=== PATIENT | male | born 1960 | race Caucasian/White ===

== ENCOUNTER 2022-04-08 17:06 | Emergency (ER) | payer OTHER, SELFPAY ==
[2022-04-08 17:15] VITALS: BP 120/71; PULSE 70; RESP 18; TEMP 36.8; O2SAT 100
--- NOTE | 2022-04-08 17:24 | ED.EYEPROB ---
HPI - Eye Problem General Chief complaint: Eye Problems Stated complaint: Eyes Irritation Time Seen by Provider: 04/08/22 17:24 Source: patient Mode of arrival: ambulatory Limitations: no limitations History of Present Illness HPI Narrative: 61-year-old male presents with complaint of irritation, clear drainage from both eyes. Symptoms worse to left eye. Has had the symptoms for 2-3 days. States that they started after cleaning out gutters. States some leaves flew into his eyes and he itched at them. Is concerned he is now getting infection. all systems reviewed and negative except as noted above. Related Data Allergies Allergy/AdvReac Type Severity Reaction Status Date / Time No Known Allergies Allergy Verified 04/08/22 17:14 Review of Systems Review of Systems: CONSTITUTIONAL: Denies fever, chills, or sweats. EYES: Denies visual changes . Reports redness, and clear discharge both eyes. ENT: Denies rhinorrhea, congestion, sore throat, or otalgia. CARDIOVASCULAR: Denies chest pain, palpitations, or edema. RESPIRATORY: Denies cough or dyspnea. GASTROINTESTINAL: Denies abdominal pain, nausea, vomiting, or diarrhea. GENITOURINARY: Denies dysuria or hematuria. SKIN: Denies rash or itching. MUSCULOSKELETAL: Denies back pain, joint pain, or myalgia. NEUROLOGIC: Denies headache, numbness, or weakness. PSYCHIATRIC: Denies anxiety or depression. All other systems reviewed are negative, except as documented in HPI. PMFSH Comments At time of signature, agree with nursing past medical, surgical, social and family history. There is no relevant family history pertinent to the presenting complaint. Exam Narrative: GENERAL: This is a well-nourished, well-developed patient, in no apparent distress. HEAD: normocephalic, atraumatic. EYES: PERRL. Sclera clear/white. Vision is grossly intact. corneal abrasion to left eye noted 9 o'clock and corneal abrasion to right eye noted at 5 O'clock. EARS: External ears normal NOSE: External nose normal NECK: Neck supple, non-tender without lymphadenopathy, masses or thyromegaly. CARDIOVASCULAR: Regular rate and rhythm without murmurs, gallops, or rubs. RESPIRATORY: Clear to auscultation. Breath sounds equal bilaterally. No wheezes, rales, or rhonchi. SKIN: warm, Dry, intact with no suspicious lesions or rash, good texture and turgor. NEURO: awake, alert, and oriented to person, place and time. There were no obvious focal neurologic abnormalities. EXTREMITIES: No joint tenderness, effusion, or edema noted. Course Course Level of Care: Express Care Visit Vital Signs Vital signs: Vital Signs Temperature 36.8 C 04/08/22 17:15 Pulse Rate 70 04/08/22 17:15 Respiratory Rate 18 04/08/22 17:15 Blood Pressure 120/71 04/08/22 17:15 Pulse Oximetry 100 04/08/22 17:15 Oxygen Delivery Room Air 04/08/22 17:15 Temperature 36.8 C 04/08/22 17:15 Pulse Rate 70 04/08/22 17:15 Respiratory Rate 18 04/08/22 17:15 Blood Pressure 120/71 04/08/22 17:15 Pulse Oximetry 100 04/08/22 17:15 Oxygen Delivery Room Air 04/08/22 17:15 reviewed Procedures Other Procedure Procedure 1: Other Procedure: Topical anesthetic was instilled with good anesthesia using 1gtt of opth anesthetic agent (tetracaine). Fluorescein stain of the R/L eye was performed. corneal abrasion noted to left and right eye. MDM - Eye Problem MDM Narrative Medical decision making narrative: Patient is aware of diagnosis, understands and agrees to treatment plan. Anticipatory guidance given. Patient agrees to follow-up as directed and is aware of reasons to seek care at the emergency department. Portions of this record may have been created with voice recognition software Discharge Plan Discharge Clinical Impression: Corneal abrasion of both eyes Patient Disposition: Home, Self-Care Condition: Stable Instructions: Antibiotic Form, Corneal Abrasion (ED) Presc
== END 2022-04-08 17:40 | disposition home or self-care (01) ==
PROVIDERS: Emergency Provider Nurse Practitioner Family
DX: S05.02XA Injury of conjunctiva and corneal abrasion without foreign body, left eye, initial encounter (principal); S05.01XA Injury of conjunctiva and corneal abrasion without foreign body, right eye, initial encounter; X58.XXXA Exposure to other specified factors, initial encounter
CPT/HCPCS: 99213; A9270; G0463

== ENCOUNTER 2022-06-25 17:56 | Emergency (ER) | payer OTHER, SELFPAY ==
--- NOTE | ~2022-06-25 | CT_ITS ---
EXAMINATION: CT abdomen pelvis w con DATE: 06/25/2022 21:36 INDICATION: LLQ pain, left flank pain, kidney stone, diverticu TECHNIQUE: Computed tomography (CT) of the abdomen and pelvis was performed with 100 mL Omnipaque-350 intravenous contrast. Automated exposure control and iterative reconstruction technique were employe d. The dose-length product was 480.90 mGy-cm. COMPARISON: None. FINDINGS: Lower thorax: Small fat-containing uncomplicated right posterior diaphragmatic hernia. Liver: Multiple simple hepatic cysts. Biliary/Gallbladder: Gallbladder is normal. No bile duct dilation. Pancreas: No mass or duct dilation. Spleen: Normal. Adrenals:No mass. Kidneys: Punctate left lower pole calcification. No mass, obstructing stone, or hydronephrosis. GI tract: Mild distal esophageal and gastric wall edema. No small or large bowel dilation. Normal klarissa endix. Mesentery/Peritoneum: No ascites, mass, or free air. Retroperitoneum: No mass. Pelvis: Bladder wall thickening. Marked prostatomegaly. Soft Tissues: Small uncomplicated fat-containing umbilical and bilateral inguinal hernias. Bones: No acute osseous finding. IMPRESSION: Esophagitis/gastritis. Bladder wall thickening may be secondary to outlet compromise or cystitis. No additional acute abdominopelvic process detected. Specifically, there is no CT evidence of diverti culitis or obstructive uropathy. Reviewed, dictated and finalized at location [facility]. IMPRESSION: Esophagitis/gastritis. Bladder wall thickening may be secondary to outlet compr omise or cystitis. No additional acute abdominopelvic process detected. Specifically, there is no CT evidence of diverticulitis or obstructive uropathy.
[2022-06-25 17:57] VITALS: BP 121/71; PULSE 70; RESP 15; TEMP 36.7; O2SAT 100
[2022-06-25 20:23] LABS: Basophils Absolute Auto 0.1 K/mm3 (0.0-0.1); Basophils Percent Auto 0.8 % (0.2-1.2); Eosinophils Absolute Auto 0.1 K/mm3 (0-0.3); Eosinophils Percent Auto 1.5 % (0-4.4); Hematocrit 43.5 % (42.0-52.0); Hemoglobin 14.4 g/dL (14.0-18.0); Immature Granulocyte Absolute 0.01 K/mm3 (0.00-0.031); Immature Granulocyte Percent A 0.1 % (0-0.5); Lymphocytes Absolute Auto 2.77 K/mm3 (0.9-3.2); Lymphocytes Percent Auto 38.5 % (18.3-44.2); Mean Corpuscular HGB Conc 33.1 g/dl (32-36); Mean Corpuscular Hemoglobin 29.4 pg (26-34); Mean Platelet Volume 10.5 fl (7.4-10.4); Monocytes Absolute Auto 0.6 K/mm3 (0.1-0.6); Monocytes Percent Auto 7.8 % (2.6-8.5); Neutrophils Absolute Auto 3.7 K/mm3 (1.3-6.7); Neutrophils Percent Auto 51.3 % (45.5-73.1); Platelet Count Result 335 k/mm3 (150-375); Red Blood Count 4.89 M/mm3 (4.6-6.20); Red Cell Distribution Width 12.9 % (11.5-14.5); White Blood Count 7.2 K/mm3 (4.5-10.0)
[2022-06-25 20:29] LABS: Appearance Urine Clear (Clear); Bilirubin Urine Negative (Negative); Blood Urine Negative (Negative); Color Urine Yellow (Yellow); Glucose Urine UA Negative (Negative); Ketones Urine Negative (Negative); Leukocyte Esterase Ur Negative LEU/UL (Negative); Nitrate Urine Negative (Negative); Protein Urine Negative (Negative); Specific Grav Ur 1.008 (1.001-1.035); Urobilinogen Urine 0.2 mg/dL (<2.0)
[2022-06-25 20:39] LABS: Add Urine Microscopic? NO
[2022-06-25 21:12] LABS: Alanine Aminotransferase 21 U/L (6-50); Albumin Level 4.6 g/dL (3.5-5.1); Alkaline Phosphatase 79 U/L (38-126); Anion Gap 7 mmol/L (8-16); Aspartate Amino Transferase 20 U/L (17-59); Bilirubin,Total 0.5 mg/dL (0.2-1.3); Blood Urea Nitrogen 9 mg/dL (9-20); Calcium 9.1 mg/dL (8.4-10.2); Carbon Dioxide 24 mmol/L (22-30); Chloride 107 mmol/L (98-107); Estimated CRCL calculation 119 ml/min; Estimated Glomerular Filt Rate > 60; Glucose 100 mg/dL (65-110); Lipase 78 U/L (23-300); Potassium 4.1 mmol/L (3.4-5.0); Sodium 138 mmol/L (137-145)
--- NOTE | 2022-06-25 21:24 | ED.BACK ---
HPI - Back Pain/Injury General Chief Complaint: Back Pain/Injury Stated Complaint: Left back pain Time Seen by Provider: 06/25/22 19:31 Source: patient and family Mode of arrival: ambulatory Limitations: no limitations History of Present Illness HPI Narrative: Patient is 61 years old white male came to the emergency room by private car with left sided flank and lower back pain radiating to left lower extremity like numbness started this morning while shaving at 9 AM. Patient does shave every day, nothing different today. Patient reports a lot of lifting and moving furniture yesterday. He denies any fever, chills, nausea, vomiting, or urinary symptoms. Patient reports pain get worse with certain movement, standing feeling much better. Currently complaining of left lower quadrant pain. Related Data Allergies Allergy/AdvReac Type Severity Reaction Status Date / Time No Known Allergies Allergy Verified 04/08/22 17:14 Review of Systems Review of Systems: All systems reviewed & are unremarkable except as noted in HPI and below Exam Narrative: General appearance: Well-developed, well-nourished Skin: Normal color Head: Normocephalic, nontraumatic Eyes: Clear conjunctiva ENT: Oropharynx normal, ears normal, nose normal Neck: Supple, nontender Chest and respiratory: Airway patent, no respiratory distress, no accessory muscle use Heart: Regular rate/rhythm Abdomen: Soft, nontender, no organomegaly, quiet bowel sounds Vascular: Normal peripheral pulses, normal capillary refill. Musculoskeletal: Mild diffuse tenderness left flank, left lower quadrant and left lower back. No bruises, no rash or mass. Limited range of motion at the lumbar area. Neurologic: Alert and oriented ?3, W[employer] COORDINATOR is normal as tested, no gross motor deficit Course Reevaluation(s) Reevaluation #1: No new changes patient declined any pain medication at this time. Date: 06/25/22 Time: 21:29 Vital Signs Vital signs: Vital Signs Temperature 36.7 C 06/25/22 17:57 Pulse Rate 70 06/25/22 17:57 Respiratory Rate 15 06/25/22 17:57 Blood Pressure 121/71 06/25/22 17:57 Pulse Oximetry 100 06/25/22 17:57 Oxygen Delivery Room Air 06/25/22 17:57 Temperature 36.7 C 06/25/22 17:57 Pulse Rate 68 06/25/22 21:43 Respiratory Rate 18 06/25/22 21:43 Blood Pressure 130/89 06/25/22 21:43 Pulse Oximetry 100 06/25/22 21:43 Oxygen Delivery Room Air 06/25/22 17:57 MDM - Back Pain/Injury MDM Narrative Medical decision making narrative: Patient presents with sudden onset of pain at the left lower back radiating to left lower extremity and left lower quadrant. Physical examination positive for muscle pain at the left lower back and left lower quadrant tenderness. Differential diagnosis include musculoskeletal pain, sciatica, diverticulitis, kidney stone, urinary tract infection Work-up today showed normal blood work-up, normal urine, CT abdomen pelvis with IV contrast showed no acute abnormalities. Musculoskeletal pain is my concern. Patient will be discharged on naproxen and Flexeril. Differential Diagnosis Differential diagnosis: Likely lumbar radiculopathy, sciatica, strain of lumbar region and renal colic Lab Data 06/25/22 20:17 06/25/22 20:53 Labs: Lab Results 06/25/22 06/25/22 06/25/22 Range/Units 20:17 20:22 20:53 WBC 7.2 (4.5-10.0) K/mm3 RBC 4.89 (4.6-6.20) M/mm3 Hgb 14.4 (14.0-18.0) g/dL Hct 43.5 (42.0-52.0) % MCV 89.0 (80-100) fl MCH 29.4 (26-34) pg MCHC 33.1 (32-36) g/dl RDW 12.9 (11.5-14.5) % Plt Count 335 (150-375) k/mm3 MPV 10.5 H (7.4-10.4) fl Immature Gran %
[2022-06-25 21:43] VITALS: BP 130/89; PULSE 68; RESP 18; O2SAT 100
[2022-06-25] MEDS: CYCLOBENZAPRINE HCL 10 MG TABLET PO (22:54)
[2022-06-25] MEDS: KETOROLAC 30 MG/ML VIAL (*BKC) IV PUSH (22:54)
[2022-06-25] MEDS: HYDROcodone/acetaminophen (*CRX) 5-325 MG TABLET 1 TAB PO (22:54)
== END 2022-06-25 23:01 | disposition home or self-care (01) ==
PROVIDERS: Emergency Provider Emergency Medicine
DX: S39.012A Strain of muscle, fascia and tendon of lower back, initial encounter (principal); M54.16 Radiculopathy, lumbar region; X50.0XXA Overexertion from strenuous movement or load, initial encounter
CPT/HCPCS: 36415; 74177; 80053; 81003; 83690; 85025; 96374; 99284; A9270; J1885; Q9967

== ENCOUNTER 2022-08-19 19:26 | Emergency (ER) | payer OTHER, SELFPAY ==
[2022-08-19 19:35] VITALS: BP 125/76; PULSE 81; RESP 14; TEMP 37.3; O2SAT 100
--- NOTE | 2022-08-19 19:37 | ED.GENADULT ---
HPI - General Adult General Chief complaint: Upper Respiratory Infection Stated complaint: high fever Time Seen by Provider: 08/19/22 19:42 Source: patient, RN notes reviewed and old records reviewed Mode of arrival: ambulatory Limitations: no limitations History of Present Illness HPI narrative: 61-year-old male presents to the [facility] with concerns for a subjective fever, chills, body aches, right ear pain. Denies sore throat and headache Did not have a thermometer to check his temperature. Had taken Tylenol earlier this morning. Denies chest pain or shortness of breath. Symptoms started last night. States that when he uses Flonase it makes the symptoms better Onset (ago): day(s) (1) Related Data Allergies Allergy/AdvReac Type Severity Reaction Status Date / Time No Known Allergies Allergy Verified 08/19/22 19:35 Review of Systems Review of Systems: All systems reviewed & are unremarkable except as noted in HPI and below Constitutional: Constitutional: Reports as per HPI, Reports body ache(s) and Reports fever(s) (Subjective) Eyes: Eyes: Reports no additional eye complaints ENT: Reports as per HPI Cardiovascular: Cardiovascular: Reports no additional cardiovascular complaints, Denies chest pain and Denies dyspnea Respiratory: Respiratory: Reports no additional respiratory complaints, Denies chest congestion, Denies cough and Denies dyspnea Gastrointestinal: Gastrointestinal: Reports no additional gastrointestinal complaints, Denies abdominal pain, Denies nausea and Denies vomiting Musculoskeletal: Musculoskeletal: Reports no additional musculoskeletal complaints Integumentary/Breasts: Skin/Breast: Reports system reviewed and no additional complaints, except as docu Neurologic: Reports system reviewed and no additional complaints, except as documented Psychiatric: Psychiatric: Reports no additional psychiatric complaints Allergic/Immunologic: Allergic/Immunologic: Reports no additional allergic/immunologic complaints PMFSH Comments At the time of my signature, I reviewed and agree with the nursing past medical, surgical, social, and family history. There is no relevant family history pertinent to the patient complaint. Exam Const: General: cooperative, healthy appearing, comfortable, no acute distress, well developed, alert and well nourished Nutritional Appearance: well nourished Orientation/consciousness: patient oriented x3 Limitations: no limitations HENMT: Head: normal to inspection Ears: hearing grossly normal bilaterally and external ears normal Face/Nose/Sinus: Normal external nose present, Normal nares present, Normal nasal mucous membranes and turbinates present and normal facial exam Face and sinus: normal facial exam Mouth: Yes Normal oral and palatal mucosa present, Yes lip normal and Yes moist mucous membranes Throat: posterior oropharynx normal, uvula midline, postnasal drainage and no uvular edema Eyes: General: appearance normal, both eyes and all related structures Alignment and Position: alignment normal Periorbital: periorbital findings normal Pupils: Equal, round and reactive pupils present EOM: EOMs intact bilaterally Neck: Neck: normal visual inspection, full ROM, no lymphadenopathy and no meningeal signs Chest: Chest palpation & inspection: normal inspection of the chest Resp: Effort & Inspection: normal respiratory effort and able to speak in complete sentences Auscultation: clear to auscultation bilaterally, no crackles, no rales, no rhonchi and no wheezes Cardio: Rate: regular rate Rhythm: regular rhythm Back/Spine/Pelvis: Cervical Spine: cervical ROM normal Thoracic/Lumbar Spine: No thoracic spinal tenderness Skin: General skin exam: normal color and no rashes or lesions noted Lesions: no lesions Rashes: no rashes Wounds: no wounds Neuro: General: patient oriented x3, gait normal, tone normal, moves all extremities and no meningeal signs Cranial nerves: Yes Equal, ro
== END 2022-08-19 19:57 | disposition home or self-care (01) ==
PROVIDERS: Emergency Provider Nurse Practitioner
DX: J06.9 Acute upper respiratory infection, unspecified (principal)
CPT/HCPCS: 99211; G0463

== ENCOUNTER 2024-03-26 14:48 | Emergency (ER) | payer BC, SELFPAY ==
[2024-03-26 15:08] VITALS: BP 132/77; PULSE 76; RESP 18; TEMP 36.4; O2SAT 99
--- NOTE | 2024-03-26 15:23 | ED.GENADULT ---
HPI - General Adult General Chief complaint: Eye Problems Stated complaint: Eye redness Time Seen by Provider: 03/26/24 15:24 Source: patient Mode of arrival: ambulatory Limitations: no limitations History of Present Illness HPI narrative: 63-year-old male presents with redness to left eye. No pain, drainage, vision changes. Patient reports history of corneal abrasion. Once eye stained due to going out of town. Wants to make sure he does not have an injury that needs to be treated Or foreign body. All systems reviewed and negative except as noted above. Related Data Home Medications ?Medication ?Instructions ?Recorded ?Confirmed ?Last Taken ?Type No Home Medications 03/26/24 Unknown History Allergies Allergy/AdvReac Type Severity Reaction Status Date / Time No Known Allergies Allergy Verified 03/26/24 14:57 Review of Systems Review of Systems: CONSTITUTIONAL: Denies fever, chills, or sweats. EYES: Denies visual changes . Reports left eye redness. Denies discharge. ENT: Denies rhinorrhea, congestion, sore throat, or otalgia. CARDIOVASCULAR: Denies chest pain, palpitations, or edema. RESPIRATORY: Denies cough or dyspnea. GASTROINTESTINAL: Denies abdominal pain, nausea, vomiting, or diarrhea. GENITOURINARY: Denies dysuria or hematuria. SKIN: Denies rash or itching. MUSCULOSKELETAL: Denies back pain, joint pain, or myalgia. NEUROLOGIC: Denies headache, numbness, or weakness. PSYCHIATRIC: Denies anxiety or depression. All other systems reviewed are negative, except as documented in HPI. PMFSH Comments At time of signature, agree with nursing past medical, surgical, social and family history. There is no relevant family history pertinent to the presenting complaint. Exam Narrative: GENERAL: This is a well-nourished, well-developed patient, in no apparent distress. HEAD: normocephalic, atraumatic. EYES: PERRL. subconjunctival hemorrhage to Lateral aspect of left sclera. Vision is grossly intact. Topical anesthetic was instilled with good anesthesia using 1gtt of opth anesthetic agent (tetracaine). Fluorescein stain of the L eye was performed without uptake of dye. No epithelial defect was noted. NO FB, ulcer or dendritic lesions. Upper lid was everted and no FB or lesions were noted. NO Iglesia sign. Normal saline irrigation eye solution was performed and the patient tolerated the procedure well, no adverse reaction or complications. EARS: External ears normal NOSE: External nose normal NECK: Neck supple, non-tender without lymphadenopathy, masses or thyromegaly. CARDIOVASCULAR: Regular rate and rhythm without murmurs, gallops, or rubs. RESPIRATORY: Clear to auscultation. Breath sounds equal bilaterally. No wheezes, rales, or rhonchi. SKIN: warm, Dry, intact with no suspicious lesions or rash, good texture and turgor. NEURO: awake, alert, and oriented to person, place and time. There were no obvious focal neurologic abnormalities. EXTREMITIES: No joint tenderness, effusion, or edema noted. Course Course Level of Care: Express Care Visit Vital Signs Vital signs: Vital Signs Temperature 36.4 C 03/26/24 15:08 Pulse Rate 76 03/26/24 15:08 Respiratory Rate 18 03/26/24 15:08 Blood Pressure 132/77 03/26/24 15:08 Pulse Oximetry 99 03/26/24 15:08 Oxygen Delivery Room Air 03/26/24 15:08 Temperature 36.4 C 03/26/24 15:08 Pulse Rate 76 03/26/24 15:08 Respiratory Rate 18 03/26/24 15:08 Blood Pressure 132/77 03/26/24 15:08 Pulse Oximetry 99 03/26/24 15:08 Oxygen Delivery Room Air 03/26/24 15:08 reviewed Medical Decision Making MDM Narrative Medical decision making narrative: no foreign body or corneal abrasion noted on exam. Educated patient about subconjunctival hemorrhage. Recommend follow up with asset recovery specialist if not improving. Patient is aware of diagnosis, understands and agrees to treatment plan. Anticipatory guidance given. Patient agrees to follow-up as directed and is aware of reasons to seek care at the emergency department. Portions of this record may have been created with voice recognition software Vital Signs Vital Signs: Vital Signs Temperature 36.4 C 03/26/24 15:08 Pulse Rate 76 03/26/24 15:08 Respiratory Rate 18 03/26/24 15:08 Blood Pressure 132/77 03/26/24 15:08 Pulse Oximetry 99 03/26/24 15:08 Oxygen Delivery Room Air 03/26/24 15:08 Temperature 36.4 C 03/26/24 15:08 Pulse Rate 76 03/26/24 15:08 Respiratory Rate 18 03/26/24 15:08 Blood Pressure 132/77 03/26/24 15:08 Pulse Oximetry 99 03/26/24 15:08 Oxygen Delivery Room Air 03/26/24 15:08 Discharge Plan Discharge Clinical Impression: Conjunctival hemorrhage of left eye Patient Disposition: Home, Self-Care Condition: Stable Instructions: General Patient Instructions Additional Instructions: A subconjunctival hemorrhage occurs when a tiny blood vessel breaks just underneath the clear surface of your eye (conjunctiva). In many ways, it's just like having a bruise on your skin. The conjunctiva can't absorb blood very quickly, so the blood gets trapped. You may not even realize you have a subconjunctival hemorrhage until you look in the mirror and notice that the white part of your eye is bright red.The most obvious sign of a subconjunctival hemorrhage is a bright red patch on the white (sclera) of your eye. Despite its bloody appearance, a subconjunctival hemorrhage looks worse than it is and should cause no change in your vision, discharge or pain. Your only discomfort may be a scratchy feeling on the surface of the eye. Patient Language: Slovak Prescriptions: No Action No Home Medications Follow-up/Referrals: PHYSICIAN,WAREDRESSER [Primary Care Provider] - Time of Disposition: 15:46
[2024-03-26] MEDS: DACRIOSE EYE IRRIGATION 118 ML BOTTLE LEFT EYE (15:38)
[2024-03-26] MEDS: FLUORESCEIN SOD 1 MG/STRIP LEFT EYE (15:38)
[2024-03-26] MEDS: TETRACAINE HCL 0.5% OPHTH SOLN 4 ML BTL LEFT EYE (15:39)
== END 2024-03-26 15:55 | disposition home or self-care (01) ==
PROVIDERS: Emergency Provider Nurse Practitioner Family
DX: H11.32 Conjunctival hemorrhage, left eye (principal)
CPT/HCPCS: 99213; G0463

== ENCOUNTER 2024-07-08 15:04 | Emergency (ER) | payer BC, SELFPAY ==
[2024-07-08 15:16] VITALS: BP 134/61; PULSE 83; RESP 16; TEMP 37.6; O2SAT 99
--- NOTE | 2024-07-08 15:17 | ED.EYEPROB ---
HPI - Eye Problem General Chief complaint: Eye Problems Stated complaint: Right Eye Irritation Time Seen by Provider: 07/08/24 15:17 Source: patient, RN notes reviewed and old records reviewed Mode of arrival: ambulatory Limitations: no limitations History of Present Illness HPI Narrative: 63-year-old male presents to the [facility] with complaints of right eye irritation and ear fullness. Patient states this morning about 930 states that it felt like something went into his eye. Now has discharge. Normally wears glasses. No change in vision. States that he normally has very poor vision. Related Data Home Medications ?Medication ?Instructions ?Recorded ?Confirmed ?Last Taken ?Type No Home Medications 03/26/24 Unknown History Allergies Allergy/AdvReac Type Severity Reaction Status Date / Time No Known Allergies Allergy Verified 07/08/24 15:23 Review of Systems Review of Systems: All systems reviewed & are unremarkable except as noted in HPI and below Constitutional: Constitutional: Reports no additional constitutional complaints Eyes: Eyes: Reports as per HPI ENT: Reports system reviewed and no additional complaints, except as documented Cardiovascular: Cardiovascular: Reports no additional cardiovascular complaints, Denies chest pain and Denies dyspnea Respiratory: Respiratory: Reports no additional respiratory complaints, Denies chest congestion, Denies cough and Denies dyspnea Musculoskeletal: Musculoskeletal: Reports no additional musculoskeletal complaints Integumentary/Breasts: Skin/Breast: Reports system reviewed and no additional complaints, except as docu PMFSH Comments At the time of my signature, I reviewed and agree with the nursing past medical, surgical, social, and family history. There is no relevant family history pertinent to the patient complaint. Exam Const: General: cooperative, healthy appearing, comfortable, no acute distress, well developed, alert and well nourished Nutritional Appearance: well nourished Orientation/consciousness: patient oriented x3 Limitations: no limitations HENMT: Head: normal to inspection Ears: hearing grossly normal bilaterally, external ears normal, EAC's normal, mastoids normal, no periauricular adenopathy and TM abnormal with fluid behind the TM bilateral; not bulging and not erythematous Eyes: General: appearance normal, both eyes and all related structures Alignment and Position: alignment normal Eyelids: eyelids normal Conjunctivae: conjunctival abnormality right conjunctival injection and discharge purulent Cornea: corneas normal and fluorescein used Pupils: Equal, round and reactive pupils present EOM: EOMs intact bilaterally Neck: Neck: normal visual inspection, full ROM, no lymphadenopathy and no meningeal signs Chest: Chest palpation & inspection: normal inspection of the chest Resp: Effort & Inspection: normal respiratory effort and able to speak in complete sentences Auscultation: clear to auscultation bilaterally, no crackles, no rales, no rhonchi and no wheezes Cardio: Rate: regular rate Skin: General skin exam: normal color and no rashes or lesions noted Neuro: General: patient oriented x3, gait normal, moves all extremities and no meningeal signs Cognition (Neuro): normal cognition Speech: normal speech Gait exam (Neuro): Normal gait present Extrem: General: normal to inspection, full ROM, capillary refill normal and normal gait Psych: Appearance: grossly normal and well kempt Mental Status: mental status grossly normal Speech and movement: Normal speech and movement present and Clear speech present Affect: normal affect Attitude: cooperative Course Course Level of Care: Express Care Visit Vital Signs Vital signs: Vital Signs Temperature 99.7 F H 07/08/24 15:16 Pulse Rate 83 07/08/24 15:16 Respiratory Rate 16 07/08/24 15:16 Blood Pressure 134/61 07/08/24 15:16 Pulse Oximetry 99 07/08/24 15:16 Oxygen Delivery Room Air 07/08/24 15:16 Temperature 99.7 F H 07/08/24 15:16 Pulse Rate 83 07/08/24 15:16 Respiratory Rate 16 07/08/24 15:16 Blood Pressure 134/61 07/08/24 15:16 Pulse Oximetry 99 07/08/24 15:16 Oxygen Delivery Room Air 07/08/24 15:16 Reviewed MDM - Eye Problem MDM Narrative Medical decision making narrative: Patient sitting in exam room. Nontoxic, vitals stable. Patient presents with right eye irritation and discharge. Fluorescein use, no ulceration or abrasion noted. Thick purulent discharge noted. Patient appropriate for outpatient treatment with close follow-up. Encouraged patient to make an appointment with an eye doctor, phone numbers given. Discharge instructions reviewed with patient, as well as provided in writing per nursing staff. The instructions also include specific and strict return/GO TO THE ER as well as f/u information. All questions have been answered, and the patient deny any further questions with discharge and discharge plan. Some parts of this dictation were generated by voice recognition software and may contain typographical and/or grammatical inaccuracies. Differential Diagnosis Differential diagnosis: Likely corneal abrasion, conjunctivitis, acute iritis, hyphema, periorbital cellulitis, subconjunctival hemorrhage, corneal ulcer and ruptured globe Critical Care Time Critical Care Time Critical Care Time: No Discharge Plan Discharge Clinical Impression: Acute serous otitis media, bilateral Conjunctivitis Qualifiers: Conjunctivitis type: acute Patient Disposition: Home Condition: Stable Instructions: Antibiotic Form, Fluid In The Ear (Serous Otitis Media) (ED), Conjunctivitis (ED) Additional Instructions: Apply a cool, damp compress to your affected eye. Be sure to use a clean cloth each time to avoid spreading the infection. Gently clean your eyes with wet cotton balls or pads to remove crusty buildup or irritating discharge. Use prescription eye drops as prescribed Maintain good hygiene and only touch your eyes with freshly washed hands. For new or worsening symptoms please go directly to the emergency room You should follow-up with an eye doctor within the next 72 hours [facility]: [place]- [phone] [facility] [phone] [facility] [phone] [place]: [facility] [phone] or [phone] [facility] [phone] [facility] [phone] [facility] [phone] [facility]- [phone] Patient Language: Tajik Prescriptions: New ciprofloxacin HCl 0.3 % drops See Rx Instructions .ROUTE .COMPLEX Qty: 2.5 0RF Rx Instructions: put 1 drop in right eye every 2hr up to 8 times/day x2days; then 4 times/day x5days No Action No Home Medications Follow-up/Referrals: PHYSICIAN,REGULATORY ATTORNEY [Primary Care Provider] - Stand Alone Forms: Work/School Release IP Time of Disposition: 15:41
[2024-07-08] MEDS: FLUORESCEIN SOD 1 MG/STRIP RIGHT EYE (15:29)
[2024-07-08] MEDS: TETRACAINE HCL 0.5% OPHTH SOLN 4 ML BTL 1 DROP RIGHT EYE (15:29)
== END 2024-07-08 15:51 | disposition home or self-care (01) ==
PROVIDERS: Emergency Provider Nurse Practitioner
DX: H65.03 Acute serous otitis media, bilateral (principal); H10.31 Unspecified acute conjunctivitis, right eye
CPT/HCPCS: 99213; G0463